=== PATIENT | female | born 1970 | race Caucasian/White ===

== ENCOUNTER → 2016-10-14 | Outpatient (CLI) | payer OTHER ==
[~2016-10-14] MED LIST: ALBUAER19 INH; ATEN50TA8 PO; BENZ1CAP90 PO; PHEN1MIS PO; PRED10TA PO
== END | disposition home or self-care (01) ==
LOC: C.PAPS 15:22
PROVIDERS: ATTEND Physician Assistant
DX: Z12.4 Encounter for screening for malignant neoplasm of cervix (principal)

== ENCOUNTER → 2016-11-11 | Outpatient (CLI) | payer OTHER ==
--- NOTE | 2016-11-12 14:05 | MAMMOGRAPHY REPORT ---
BILATERAL FIRST EVER DIGITAL SCREENING MAMMOGRAM TOMOSYNTHESIS WITH CAD: 11/11/2016 CLINICAL HISTORY: Routine screening. Baseline exam. TECHNIQUE: Breast tomosynthesis in addition to standard 2D mammography was performed. Current study was also evaluated with a Computer Aided Detection (CAD) system. COMPARISON: No prior exams were available for comparison. BREAST COMPOSITION: The tissue of both breasts is heterogeneously dense, which may obscure small ma sses. FINDINGS: There are multiple bilateral clusters of calcifications, for which spot magnification vie ws are recommended for further evaluation. These may represent milk of calcium. Additionally, ther e is an oval circumscribed 7 mm mass seen within the left superior breast on the MLO view only, best seen on the tomosynthesis images, for which ultrasound and possible additional spot compression vie ws are recommended. This may represent a cyst. The remainder of both breasts are negative, without suspicious masses, calcifications, or areas of a rchitectural distortion noted. IMPRESSION: ACR BI-RADS CATEGORY 0: INCOMPLETE EVALUATION: NEED ADDITIONAL IMAGING EVALUATION Bilateral calcifications and circumscribed left breast mass, for which additional imaging evaluation is recommended. The patient will be called to schedule an appointment. Approximately 10% of breast cancers are not detected with mammography. A negative mammographic repor t should not delay biopsy if a clinically suggestive mass is present. Olena Wong M.D. ah/:11/11/2016 15:20:59 Hand Cigar Maker: James CARNEY(R)(M), [facility] letter sent: Addl Imaging 0 BI-RADS Code: ACR BI-RADS Category 0: Incomplete Evaluation: Need Additional Imaging Evaluation
== END | disposition home or self-care (01) ==
LOC: C.MAMM 10:17
PROVIDERS: ATTEND Obstetrics & Gynecology
DX: Z12.31 Encounter for screening mammogram for malignant neoplasm of breast (principal); N63 Unspecified lump in breast; R92.1 Mammographic calcification found on diagnostic imaging of breast

== ENCOUNTER → 2016-12-23 | Outpatient (CLI) | payer BC ==
--- NOTE | 2016-12-23 12:33 | MAMMOGRAPHY REPORT ---
BILATERAL DIGITAL DIAGNOSTIC MAMMOGRAM AND TARGETED LEFT ULTRASOUND: 12/23/2016 CLINICAL HISTORY: Callback from baseline screening mammogram for bilateral calcifications and left br east mass. TECHNIQUE: Spot magnification bilateral cc and ML views were obtained. COMPARISON: Comparison is made to exam dated: 11/11/2016 mammogram - [facility]. BREAST COMPOSITION: The tissue of both breasts is heterogeneously dense, which may obscure small mas ses. FINDINGS: Spot magnification views demonstrate multiple scattered groups of calcifications throughout both breasts. The majority of the calcifications demonstrate layering on the lateral view, consistent with benign milk of calcium. On e small 2 mm cluster of punctate calcifications in the right superior breast and two small 2 mm clust ers of punctate calcifications in the left superior breast do not clearly demonstrate layering althou gh still likely represent milk of calcium. The calcifications are probably benign and follow-up is r ecommended. Targeted ultrasound was performed of the left superior breast in the region of the mammographic mass seen on the screening mammogram. Multiple round/oval anechoic circumscribed masses are noted in the left 12:00 breast, consistent with cysts. An oval anechoic 5 x 6 mm mass is seen within the left 12: 00 periareolar region posteriorly, which is consistent with a benign simple cyst and likely correspon ds with the mammographic mass. IMPRESSION: ACR-BI-RADS CATEGORY 3: PROBABLY BENIGN, TARGETED ULTRASOUND ACR-BI-RADS CATEGORY 3: PRO BABLY BENIGN 1. Multiple bilateral clusters of calcifications, the majority of which demonstrate layering and are consistent with benign milk of calcium. Three small clusters of calcifications in bilateral superior breasts do not clearly layer although still likely represent milk of calcium. The calcifications ar e probably benign and recommend bilateral diagnostic mammograms in 6 months to confirm stability. 2. Multiple small benign cysts seen within the left 12:00 breast on ultrasound, one of which is felt to correspond with the circumscribed mammographic mass. The patient has been verbally notified of the results. Approximately 10% of breast cancers are not detected with mammography. A negative mammographic report should not delay biopsy if a clinically suggestive mass is present. Olena Wong M.D. ah/:12/23/2016 11:24:08 Compliance Administrator: Majo CARNEY(R)(Adriano), [facility] letter sent: Follow Up Recommended 3 BI-RADS Code: ACR-BI-RADS Category 3: Probably Benign Ultrasound BI-RADS: ACR-BI-RADS Category 3: Pr obably Benign
== END | disposition home or self-care (01) ==
LOC: C.MAMM 10:27
PROVIDERS: ATTEND Obstetrics & Gynecology
DX: R92.1 Mammographic calcification found on diagnostic imaging of breast (principal); N60.02 Solitary cyst of left breast